=== PATIENT | female | born 2000 | race Caucasian/White ===

== ENCOUNTER 2021-06-19 17:41 | Emergency (ER) | payer BC, SELFPAY ==
[2021-06-19 17:49] VITALS: BP 127/75; PULSE 86; RESP 18; TEMP 36.9; O2SAT 99
--- NOTE | 2021-06-19 18:47 | ED.URI ---
HPI - URI/Sore Throat General Chief Complaint: Upper Respiratory Infection Stated Complaint: Nausea/Skin Sore Time Seen by Provider: 06/19/21 18:47 Source: patient, RN notes reviewed and old records reviewed Mode of arrival: ambulatory Limitations: no limitations History of Present Illness HPI Narrative: 21-year-old female who [facility] with complaints of 3 day history of sneezing, itchy eyes, fatigue and nausea today and 2 cold sores on the bottom lip. Patient states she thought it was probably related to allergies and took some Benadryl but her symptoms have not resolved. She denies any known fevers, chills, or sweats,denies any cough or any shortness of breath. Related Data Home Medications Medication Instructions Recorded Confirmed drospirenone-ethinyl estradiol 1 tablet DIRECTED 06/19/21 06/19/21 Allergies Allergy/AdvReac Type Severity Reaction Status Date / Time bee venom protein (honey bee) Allergy Swelling Verified 06/19/21 18:04 [bees] prednisone Allergy Other Verified 06/19/21 18:04 Review of Systems Review of Systems: CONSTITUTIONAL: Denies fever, chills, or sweats. EYES: Denies visual changes, redness, or discharge, reports eyes itchy ENT: Positive for rhinorrhea, congestion, no sore throat, or otalgia, positive for cold sores bottom lip X2 CARDIOVASCULAR: Denies chest pain, palpitations, or edema. RESPIRATORY: Denies cough or dyspnea. GASTROINTESTINAL: Denies abdominal pain,positive for nausea,no vomiting, or diarrhea. GENITOURINARY: Denies dysuria or hematuria. SKIN: Denies rash or itching. MUSCULOSKELETAL: Denies back pain, joint pain, or myalgia. NEUROLOGIC: Denies headache, numbness, or weakness. PSYCHIATRIC: Denies anxiety or depression. All systems reviewed & are unremarkable except as noted in HPI and below PMFSH Past Medical History Medical History (Updated 06/21/21 @ 07:40 by Christy Pace NP) GERD (gastroesophageal reflux disease) History of cold sores Scoliosis Surgical History Surgical History (Updated 06/21/21 @ 07:39 by Christy Pace NP) H/O lymph node excision [place] teeth extracted Social History Social History (Updated 06/19/21 @ 18:58 by Christy Pace NP) Smoking status: Never smoker Alcohol intake: never Substance use: never Living arrangements: alone Gender identity (if verbalized by the patient): Female Comments At time of signature, agree with nursing past medical, surgical, social and family history. There is no relevant family history pertinent to the presenting complaint Exam Narrative: GENERAL: Well-appearing, well-nourished, and in no acute distress. HEAD: Normocephalic, atraumatic. EYES: PERRLA and EOMI. ENT: Nares red with clear rhinorrhea no epistaxis. Mucous membranes moist.TM's normal with good light reflex, throat with minimal redness, no lesions or exudates no tonsil swelling, post nasal drainage noted, cold sores X2 to bottom of lip painful NECK: Supple.no lymphadenopathy CHEST: Clear to auscultation. No respiratory distress.SAO2 99% on room air HEART: Regular rate and rhythm. No murmur heard. Normal peripheral pulses. ABDOMEN: Soft, nontender, nondistended, normal active bowel sounds. EXTREMITIES: Normal range of motion. No edema. SKIN: Warm, dry, no rash. NEURO: No focal deficits. Alert and oriented x3. Course Course Level of Care: Express Care Visit Vital Signs Vital signs: Vital Signs Temperature 36.9 C 06/19/21 17:49 Pulse Rate 86 06/19/21 17:49 Respiratory Rate 18 06/19/21 17:49 Blood Pressure 127/75 06/19/21 17:49 Pulse Oximetry 99 06/19/21 17:49 Temperature 36.9 C 06/19/21 17:49 Pulse Rate 86 06/19/21 17:49 Respiratory Rate 18 06/19/21 17:49 Blood Pressure 127/75 06/19/21 17:49 Pulse Oximetry 99 06/19/21 17:49 MDM - URI/Sore Throat Differential Diagnosis Differential diagnosis: Likely upper respiratory infection, viral infection and other (allergic
== END 2021-06-19 19:07 | disposition home or self-care (01) ==
PROVIDERS: Emergency Provider Registered Nurse
DX: J06.9 Acute upper respiratory infection, unspecified (principal); R11.0 Nausea; B00.1 Herpesviral vesicular dermatitis
CPT/HCPCS: 99213; G0463